=== PATIENT | female | born 1970 | race African-American/Black ===

== ENCOUNTER 2018-10-19 22:05 | Observation (INO) ==
--- NOTE | 2018-10-19 23:24 | Emergency Department Note ---
Disposition Clinical Impression: Foreign body sensation in throat Disposition: Admitted As Inpatient Condition: Good Referrals: Dena Vásquez CNP [Primary Care Provider] - Forms: ED Satisfaction Letter, Work/School Release Time of Disposition: 00:26 General Adult HPI - General Chief complaint: ED Abdominal Pain Stated complaint: Food Bolus Time Seen by Provider: 10/19/18 22:46 Source: patient Nursing Notes Reviewed: Yes Vital Signs Reviewed: Yes - History of Present Illness HPI Narrative: Female patient presenting to emergency department complaining of having food stuck in her esophagus. States that she was eating for Around 6:00 Tonight Whenever She Swallowed Piece of Meat before She Thought She Was Fully Done Showing It. States That She Has Been Having Trouble Swallowing Ever since. She Has Tried Butter As Well As Several Different Drinks Such As Beer and Soda to Try to Dislodge This. This Is Not Worked for Her. She Is Managing Her Secretions Well. She Denies Any Shortness of Breath. 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 Patient thinks that she was able to feel the port top whenever she tried to remove it she thinks that she pushed farther into her throat. Pain Scale: 4 - Related Data Home Medications Medication Instructions Recorded Confirmed Control 05/14/18 Blood Pressure Medicine 05/14/18 Ibuprofen 05/14/18 Previous Rx's Medication Instructions Recorded Nitrofurantoin Monohyd/M-Cryst 100 mg PO BID #10 capsule 05/14/18 [Macrobid 100 mg Capsule] Phenazopyridine HCl [Pyridium] 200 mg PO TIDAC #6 tab 05/14/18 Allergies Allergy/AdvReac Type Severity Reaction Status Date / Time No Known Drug Allergies Allergy See Verified 10/19/18 22:16 Comments All systems ED: reviewed and negative except as stated. Review of Systems: As Per HPI Constitutional: Denies: fever, chills ENT ED: Denies: congestion Cardiovascular: Denies: chest pain Respiratory: Denies: cough, dyspnea Gastrointestinal: Denies: abdominal pain, nausea, vomiting, diarrhea Integumentary: Denies: rash Neurological: Denies: headache, weakness Past Medical History - Past Medical History Attestation: Yes The following information was validated with the patient. Source: patient Medical history: Reports: no medical history Surgical history: Reports: other (craniotomy for benign brain tumor 11 yrs ago) Psychiatric history: Reports: no psych history BRICK YARD HAND history: Reports: no BRICK YARD HAND history - Social History Smoking Status: Never smoker Smokeless Tobacco Status: No Alcohol use: Reports: occasionally Drug use: Reports: none Physical Exam - General General appearance: alert, in no apparent distress - Head Head exam: atraumatic, normocephalic, normal inspection - Eye Eye exam: Present: normal appearance, PERRL, EOMI - ENT ENT exam: normal exam, normal oropharynx, mucous membranes moist - Neck Neck exam: Present: normal inspection, full ROM, trachea midline - Chest Chest inspection: Present: normal inspection, symmetric chest wall rise - Respiratory Respiratory exam: Present: normal lung sounds bilaterally. Absent: respiratory distress, accessory muscle use - Cardiovascular Cardiovascular exam: Present: regular rate, normal rhythm, normal heart sounds - Abdominal Exam Abdominal exam: Present: soft, Non-Tender. Absent: tenderness, distention, gu arding, rebound, rigidity - Extremities Exam Extremities exam: Present: normal inspection, full ROM, normal capillary refill. Absent: tenderness, pedal edema - Back Exam Back exam: Present: normal inspection, full ROM. Absent: tenderness - Neurological Exam Neurological exam: Present: alert, oriented X3 - Psychiatric Psychiatric exam: Present: normal affect, normal mood - Skin Skin exam: Present: warm, dry, intact, normal color Course Course Narrative: Patient has tried several different things to help dislodge the port up in her throat with no relief. She has no history of this. We will provide patient with IV glucagon and reassess. - Reevaluation(s) Reevaluation #1: Patient is in no distress. No stridor or wheezing on exam. She is handling her secretions well. She was able to tolerate small sips of water however the glucagon did not help with the food bolus. She is not able to tolerate any type of solid food. I did discuss this patient with Dr. Son and we will admit to the hospitalist at this time. The patient is comfortable and does not appear to be anxious. - Consultations Consultation #1: Dr. Munroe requested that we place patient on nothing by mouth status and admitted to the hospitalist. He states he will scope her in the morning. Time: 00:23 Consultation #2: Dr Ansari accepted Pt in stable condition. Time: 00:23 Vital Signs Temperature 98.3 F 10/19/18 22:13 Pulse Rate 93 10/19/18 22:13 Respiratory Rate 14 10/19/18 22:13 Blood Pressure 135/89 10/19/18 22:13 O2 Sat by Pulse Oximetry 100 10/19/18 22:13 Temperature 98.3 F 10/19/18 22:13 Pulse Rate 93 10/20/18 00:00 Respiratory Rate 16 10/20/18 00:00 Blood Pressure 122/90 10/20/18 00:00 O2 Sat by Pulse Oximetry 100 10/20/18 00:00 Oxygen Delivery Oxygen Delivery Room Air Medical Decision Making - Medical Records Medical records reviewed: Yes I reviewed the patient's medical records.
--- NOTE | 2018-10-19 23:53 | Emergency Department Note ---
Disposition Clinical Impression: Foreign body sensation in throat Disposition: Still a Patient Referrals: Dena Vásquez CNP [Primary Care Provider] - Forms: ED Satisfaction Letter, Work/School Release General Adult HPI - General Chief complaint: ED Abdominal Pain Stated complaint: Food Bolus Time Seen by Provider: 10/19/18 22:46 Source: patient - History of Present Illness Pain Scale: 4 - Related Data Home Medications Medication Instructions Recorded Confirmed Control 05/14/18 Blood Pressure Medicine 05/14/18 Ibuprofen 05/14/18 Previous Rx's Medication Instructions Recorded Nitrofurantoin Monohyd/M-Cryst 100 mg PO BID #10 capsule 05/14/18 [Macrobid 100 mg Capsule] Phenazopyridine HCl [Pyridium] 200 mg PO TIDAC #6 tab 05/14/18 Allergies Allergy/AdvReac Type Severity Reaction Status Date / Time No Known Drug Allergies Allergy See Verified 10/19/18 22:16 Comments Constitutional: Denies: fever, chills ENT ED: Denies: congestion Cardiovascular: Denies: chest pain Respiratory: Denies: cough, dyspnea Gastrointestinal: Denies: abdominal pain, nausea, vomiting, diarrhea Integumentary: Denies: rash Neurological: Denies: headache, weakness Past Medical History - Past Medical History Medical history: Reports: no medical history Surgical history: Reports: other (craniotomy for benign brain tumor 11 yrs ago) Psychiatric history: Reports: no psych history FRAME SAMPLE AND PATTERN SUPERVISOR history: Reports: no FRAME SAMPLE AND PATTERN SUPERVISOR history - Social History Smoking Status: Never smoker Smokeless Tobacco Status: No Alcohol use: Reports: occasionally Drug use: Reports: none Physical Exam - General General appearance: alert, in no apparent distress Course Vital Signs Temperature 98.3 F 10/19/18 22:13 Pulse Rate 93 10/19/18 22:13 Respiratory Rate 14 10/19/18 22:13 Blood Pressure 135/89 10/19/18 22:13 O2 Sat by Pulse Oximetry 100 10/19/18 22:13 Temperature 98.3 F 10/19/18 22:13 Pulse Rate 95 10/19/18 22:53 Respiratory Rate 16 10/19/18 22:53 Blood Pressure 125/88 10/19/18 22:53 O2 Sat by Pulse Oximetry 100 10/19/18 22:53 Oxygen Delivery Oxygen Delivery Room Air Attestation Statement - Attestation Attestation: I examined this patient and my medical decision-making was reviewed with the Resident Physician. I agree with the documented findings, disposition and treatment plan as described except to the extent set forth below. 48 year old female presents to the ED with complanits of food bolus and is concerned that she swallowed a bone or thck piece of pork tonight and tried to finger swipe it out of her throat and was unable to do so and feels like she pushed down her throat and although she is able to tolerate PO liquids and her secretion at this time patinet state that she is having difficulty with swallowing solid food as it causes pain and then she spits it back up. Consideration is for food bolus vs esophageal abrasion. We wll treat with glucagon and then consult Gi as needed for endoscopy
[2018-10-20] MEDS ORDERED: 0.9 % Sodium Chloride 1,000 ML IVC SCH ×2 (00:30→08:30)
[2018-10-20 01:27] LABS: Basophils % 0.3 %; Eosinophils # 0.1 K/mcL (0.0-0.6); Eosinophils % 0.7 %; Hematocrit 35.2 % (35.3-44.9); Hemoglobin 11.3 g/dL (11.5-15.4); Immature Granulocytes % 0.3 % (0-4); Lymphocytes # 3.3 K/mcL (0.6-4.6); Lymphocytes % 28.2 %; Mean Corpuscular HGB Conc 32.1 g/dL (31.6-35.5); Mean Corpuscular Hemoglobin 26.7 pg (28.0-33.3); Mean Corpuscular Volume 83.2 fL (83.0-100.0); Mean Platelet Volume 9.4 fL (9.4-12.4); Monocytes # 0.5 K/mcL (0.0-1.3); Monocytes % 4.4 %; Neutrophils # 7.8 K/mcL (1.6-8.9); Platelet Count 299 K/mcL (140-400); Red Blood Count 4.23 M/mcL (3.82-4.97); Red Cell Distribution Width 15.2 % (11.5-14.5); Segmented Neutrophils % 66.1 %
[2018-10-20 01:48] LABS: Albumin/Globulin Ratio 1.3 (1.1-2.2); Bilirubin,Direct 0.1 mg/dL (0.0-0.2); Bilirubin,Indirect 0.1 mg/dL (0.0-1.2); Bilirubin,Total 0.2 mg/dL (0.3-1.0); Globulin 3.2 g/dL (2.4-3.5); Magnesium 2.1 mg/dL (1.6-2.6); Phosphorous 2.8 mg/dL (2.7-4.5); Total Protein 7.2 g/dL (6.4-8.9)
[2018-10-20 01:49] LABS: BUN/Creatinine Ratio 13 (6-26); Blood Urea Nitrogen 7 mg/dL (6-20); Carbon Dioxide 24 mEq/L (23-29); Chloride 106 mEq/L (98-107); Glucose 116 mg/dL (70-105); Osmolality,Calculated 283 (280-300); Potassium 3.7 mEq/L (3.5-5.1); Sodium 137 mEq/L (136-145); eGFR For Non-African Americans > 60 (> 60)
[2018-10-20] MEDS ORDERED: *HR* FentaNYL (PF) 100 MCG/2 ML VIAL IVP ONE (08:00)
[2018-10-20] MEDS ORDERED: *HR* Midazolam HCl 5 MG/5 ML VIAL IVP ONE ×2 (08:00→08:32)
[2018-10-20] MEDS ORDERED: Tetracaine/Benzocaine/Butamben 1 SPRAY AEROSOL MM ONE (08:00)
[2018-10-20] MEDS ORDERED: Simethicone 40 MG/0.6 ML MLS IR ONE (08:00)
--- NOTE | 2018-10-20 08:01 | Pre-Sedation Evaluation ---
Pre-sedation evaluation - Pre-sedation checklist Date of procedure: 10/20/18 Recent Vitals: Last Vital Signs Temp 98.0 F 10/20/18 07:28 Pulse 99 10/20/18 07:28 Resp 19 10/20/18 07:28 BP 102/65 10/20/18 07:28 Pulse Ox 98 10/20/18 07:28 ASA Classification *see protocol: CLASS II-Mild systemic disease Plan of Care: Pt appropriate candidate for procedure/moderate/conscious sedation, Risks/benefits of procedure/sedation discussed w/ patient/family
[2018-10-20] MEDS ORDERED: *HR* FentaNYL (PF) 100 MCG/2 ML VIAL ONE (08:32)
--- NOTE | 2018-10-20 08:44 | Gastroenterology Consult Note ---
<Justen Mcdonnell - Last Filed: 10/20/18 08:50> Date of Encounter: 10/20/18 Time of Encounter: 08:00 - Assessment and plan (1) Foreign body sensation in throat Status: Acute Assessment and plan: Pt arrived with 1 day hx of feeling of food stuck in her throat and dysphagia following a meal containing bones She has not had similar experiences to this in the past and she typically does not experience dysphagia She takes omeprazole prn for GERD Plan: EGD this am to remove suspected food bolus - Time Spent With Patient Total time spent is greater than 50% in coordination of care (as documented) at patient's floor/unit and/or counseling patient: less than 15 minutes GI History of Present Illness - Data of Consult Consult date: 10/20/18 Requesting Physician: Aron Ansari MD - Consult Narrative Reason for consult: Food bolus History of present illness: Ms. Quezada is a 48 year old female presenting yesterday to the ED with complaints of food stuck in her throat. Yesterday evening pt was eating pork chops for dinner and talking and felt a gagging sensation of one of the pieces stuck in her throat. She had this sensation for a minute and then it ceased and pt felt as though something was residually still in her throat. She drank many liquids a s well as soft foods last night with no relief of the sx. In the emergency department yesterday she was given some crackers to eat and experienced discomfort with doing so. Pt denies any episodes of emesis, hemoptysis, or nausea. She has never had this sensation before and today at bedside she describes the feeling as a sore throat. Pt typically does not report dysphagia although she does have occasional reflux for which she takes omeprazole. Pt denies any colonoscopies or endoscopies in her past. She has had a brain tumor removal in the past but no other significant surgeries. Colonoscopy: NA EGD: NA Past Med Surg Social Fam HX - Past Medical History Medical history: no medical history Additional medical history: Plantar fascitis Psychiatric history: no psych history - Past Surgical History Surgical History: other Additional surgical history: Brain tumor removal - Social History Smoking Status: Never smoker Smokeless Tobacco Status: No Alcohol use: occasionally Drug use: none - Family History Mother Hx Family Cardiac Disorders: Yes (CHF) Hx Family Cancer: Yes (breast cancer) Hx Family Endocrine Disorder: Yes (diabetes) All systems PM: reviewed and no additional remarkable complaints except as stated - Gastrointestinal Gastrointestinal: Present: as per HPI, heartburn. Absent: bloating, constipation, diarrhea, hematemesis, hematochezia, nausea, vomiting - Constitutional Constitutional: as per HPI, no fever(s) - EENT Nose, mouth and throat: Present: dysphagia, sore throat - Cardiovascular Cardiovascular ROS: Absent: chest pain - Respiratory Respiratory IM: Absent: hemoptysis - Neurological ROS Neurological GI: Absent: weakness - Musculoskeletal Musculoskeletal ROS GI: Present: as per HPI - Integumentary Integumentary GI: Absent: jaundice - Psychiatric ROS Psychiatric GI: Absent: anxiety - Constitutional Vitals: Temp Pulse Resp BP Pulse Ox 98.0 F 101 14 140/88 93 10/20/18 08:29 10/20/18 08:34 10/20/18 08:34 10/20/18 08:34 10/20/18 08:34 General appearance: Present: A&O X 3 - Head Head exam: Present: normocephalic - Eye Eye exam: Present: normal appearance. Absent: scleral icterus - ENT ENT exam: Present: normal exam - Neck Neck exam general surgery: Present: normal inspection - Respiratory Respiratory exam: Present: CTAB. Absent: rales, rhonchi, wheezes - Cardiovascular Cardiovascular exam: Present: RRR. Absent: diastolic murmur, gallop, rubs, systolic murmur - GI/Abdominal GI/Abdominal exam: Present: soft. Absent: mass, tenderness - Rectal Rectal exam: Present: deferred - Extremities Exam Extremities exam: Present: normal inspection - Neurological Exam Neurological exam: Present: alert, oriented X3 - Psychiatric Psychiatric exam: Present: normal affect - Skin Skin exam: Present: dry, intact Results - Labs CBC & Chem 7: 10/20/18 01:08 10/20/18 01:08 Labs: Last Result Calcium 9.0 mg/dL (8.6-10.3) 10/20/18 01:08 Entire Visit Hgb 11.3 g/dL (11.5-15.4) L 10/20/18 01:08 Hct 35.2 % (35.3-44.9) L 10/20/18 01:08 Total Bilirubin 0.2 mg/dL (0.3-1.0) L 10/20/18 01:08 AST 12 Units/L (13-39) L 10/20/18 01:08 ALT 10 Units/L (7-52) 10/20/18 01:08 Consult Discharge Plan - Plan Instructions: Omeprazole (By mouth), Food Impaction (GEN) Referrals: Dena Vásquez CNP [Primary Care Provider] - 10/26/18 10:00 am (Oliva Whittaker CNP will see you. Dena Vásquez is currently on vacation. ) Prescriptions: Omeprazole [PriLOSEC] 20 mg PO DAILY #15 cap <Rebel Munroe - Last Filed: 10/20/18 21:24> Date of Encounter: 10/20/18 - Time Spent With Patient Total time spent is greater than 50% in coordination of care (as documented) at patient's floor/unit and/or counseling patient: GI History of Present Illness - Data of Consult Requesting Physician: Pietro Poole MD - Consult Narrative History of present illness: Ms. Quezada is a 48 year old female - Constitutional Vitals: Temp Pulse Resp BP Pulse Ox 98.3 F 92 18 109/75 98 10/20/18 12:08 10/20/18 12:08 10/20/18 12:08 10/20/18 12:08 10/20/18 12:08 Results - Labs CBC & Chem 7: 10/20/18 01:08 10/20/18 01:08 Labs: Last Result Calcium 9.0 mg/dL (8.6-10.3) 10/20/18 01:08 Entire Visit Hgb 11.3 g/dL (11.5-15.4) L 10/20/18 01:08 Hct 35.2 % (35.3-44.9) L 10/20/18 01:08 Total Bilirubin 0.2 mg/dL (0.3-1.0) L 10/20/18 01:08 AST 12 Units/L (13-39) L 10/20/18 01:08 ALT 10 Units/L (7-52) 10/20/18 01:08 - Attending Attestation I examined this patient and my medical decision-making was reviewed with the med student Becki Dykes. I agree with the documented findings, disposition and treatment plan as described except to the extent set forth below. Pt seen. Pt with symptoms of dysphagia due to Pork chop impaction. O/E : AAO not in distress. A: Food impaction. Rec: EGD
[2018-10-20] MEDS ORDERED: Naloxone 0.4 MG/ML INJ IVP PRN (09:24)
[2018-10-20] MEDS ORDERED: *HR* HYDROcodone/Acet 5/325 mg TABLET PO PRN (09:24)
[2018-10-20] MEDS ORDERED: Acetaminophen 325 MG TABLET PO PRN (09:24)
[2018-10-20] MEDS ORDERED: *HR* Promethazine 25 MG/ML VIAL IVP PRN (09:25)
[2018-10-20] MEDS ORDERED: Ondansetron 4 MG/2 ML VIAL IVP PRN (09:25)
[2018-10-20] MEDS ORDERED: Pantoprazole 40 MG VIAL IVP SCH (09:30)
--- NOTE | 2018-10-20 11:21 | Internal Med History&Physical ---
Date of Encounter: 10/20/18 Time of Encounter: 11:17 Internal Medicine - H&P: HPI Chief complaint: Foreign body sensation in throat Admitted From: Emergency Dept Plans for Post Hospital Care: Home History of present illness: Ms. Quezada is a 48 year old female with no significant past medical history who presented to ER last night complaining about having foot stuck in her throat after she had a dinner around 6 PM. Since then patient has been having difficulty to sallow even for liquids. She denied any chest pain or shortness of breath. She denied any similar episodes before. Patient was admitted in the hospital today and she did go for endoscopy this morning before I saw her. She had a piece of meat/pork chop stuck in her esophagus. No patient is alert, awake and oriented x 3. She is tolerating clear liquid diet well without having any difficulties Past Med Surg Social Fam HX - Past Medical History Medical history: no medical history Additional medical history: Plantar fascitis Psychiatric history: no psych history - Past Surgical History Surgical History: other Additional surgical history: Brain tumor removal - Social History Smoking Status: Never smoker Smokeless Tobacco Status: No Alcohol use: occasionally Drug use: none - Family History Mother Hx Family Cardiac Disorders: Yes (CHF) Hx Family Cancer: Yes (breast cancer) Hx Family Endocrine Disorder: Yes (diabetes) Internal Medicine - H&P: Meds Norgestimate-Ethinyl Estradiol [Sprintec 28 Day Tablet] 1 each PO DAILY 10/20/18 [History] Allergy/AdvReac Type Severity Reaction Status Date / Time No Known Drug Allergies Allergy See Verified 10/19/18 22:16 Comments All Systems PM: A 10-system review of systems was performed and is negative for pertinent findings except as documented above in the HPI. Review of systems: All the systems are reviewed everything is benign except the systems and symptoms I mentioned in the history of present illness - Constitutional Vitals: Temp Pulse Resp BP Pulse Ox 98.0 F 101 14 140/88 93 10/20/18 08:29 10/20/18 08:34 10/20/18 08:34 10/20/18 08:34 10/20/18 08:34 General appearance: Present: cooperative, A&O X 3, no acute distress, answers questions appropriately Exam: See below - Head Head exam: Present: atraumatic, normal inspection - Neck Neck exam general surgery: Present: supple - Respiratory Respiratory exam: Present: decreased breath sounds. Absent: rales, respiratory distress, rhonchi, wheezes - Cardiovascular Cardiovascular exam: Present: RRR, +S1, +S2. Absent: tachycardia - GI/Abdominal GI/Abdominal exam: Present: normal bowel sounds, soft. Absent: rebound, rigid, tenderness - Extremities Exam Extremities exam: Absent: calf tenderness, pedal edema, tenderness - Back Exam Back exam: Absent: CVA tenderness (L), CVA tenderness (R) - Neurological Exam Neurological exam: Present: alert, oriented X3 - Psychiatric Psychiatric exam: Present: normal affect, normal mood - Skin Skin exam: Absent: rash Internal Med - H&P Results - Labs CBC & Chem 7: 10/20/18 01:08 10/20/18 01:08 Labs: Short CBC 10/20/18 Range/Units 01:08 WBC 11.7 H (4.3-11.1) K/mcL Hgb 11.3 L (11.5-15.4) g/dL Hct 35.2 L (35.3-44.9) % Plt Count 299 (140-400) K/mcL Neutrophils # 7.8 (1.6-8.9) K/mcL BMP 10/20/18 01:08 Sodium 137 Potassium 3.7 Chloride 106 Carbon Dioxide 24 BUN 7 Creatinine 0.52 L Glucose 116 H Calcium 9.0 Liver Function 10/20/18 Range/Units 01:08 Total Bilirubin 0.2 L (0.3-1.0) mg/dL Direct Bilirubin 0.1 (0.0-0.2) mg/dL AST 12 L (13-39) Units/L ALT 10 (7-52) Units/L Alkaline Phosphatase 60 (34-104) Units/L Albumin 4.0 (3.5-5.7) g/dL - Assessment and plan (1) Food impaction of esophagus Current Visit: Yes Status: Acute Assessment and plan: Place the patient into [facility] for observation patient was already evaluated by park superintendent and who did endoscopy as well as remote the piece of food/meet stuck in the proximal esophagus postprocedure patient is tolerating liquid diet well without having any difficulties will advance diet as she tolerates to soft diet for a couple of days also recommended to start taking Prilosec for a couple of weeks since patient does not havie any other acute medical problems and she is tolerating oral intake well now, so will discharge her home in a stable condition today Qualifiers: Encounter type: initial encounter Qualified Code(s): T18.128A - Food in esophagus causing other injury, initial encounter (2) Foreign body sensation in throat Current Visit: Yes Status: Acute (3) GERD (gastroesophageal reflux disease) Current Visit: No Status: Chronic Assessment and plan: on PPI Qualifiers: Esophagitis presence: without esophagitis Qualified Code(s): K21.9 - Gastro-esophageal reflux disease without esophagitis - Time Spent With Patient Total time spent is greater than 50% in coordination of care (as documented) at patient's floor/unit and/or counseling patient:
[2018-10-20 12:11] VITALS: BP 109/75
== END 2018-10-20 14:23 | disposition home or self-care (01) ==
LOC: EMEROOARM 22:05 → 3BNU 22:05 → SUATTDRO 10-20 00:44 → 3BNU 10-20 01:15
PROVIDERS: ADMIT Internal Medicine; ATTEND Family Medicine
PROC: ENDOEFB (2018-10-20 08:15)